=== PATIENT | female | born 1975 | race Native Hawaiian/Other Pacific Islander ===

== ENCOUNTER 2017-05-14 07:07 | Day surgery (SDC) | payer OTHER ==
[2017-05-11 09:52] VITALS: BMI 22.8
[2017-05-14] MEDS ORDERED: Midazolam 2 MG/2 ML VIAL ONE (08:36)
[2017-05-14] MEDS ORDERED: Propofol 10 mg/ml Inj (20 ML) ONE (08:36)
[2017-05-14] MEDS ORDERED: Succinylcholine Chloride 20 mg/ml Syr (5 ml) IV ONE (08:37)
[2017-05-14] MEDS ORDERED: Rocuronium 10 mg/ml (5 ml) ONE (08:37)
[2017-05-14] MEDS ORDERED: Bupivacaine HCl 0.25% PF (10 ml) Inj ONE (08:38)
[2017-05-14] MEDS ORDERED: Lactated Ringer's 1,000 ML IV ONE (08:53)
[2017-05-14] MEDS ORDERED: Phenylephrine 10 mg/ml Inj ONE (09:51)
[2017-05-14] MEDS ORDERED: ePHEDrine 50 mg/ml Inj ONE (09:51)
[2017-05-14] MEDS ORDERED: Neostigmine Methylsulfate 3mg/3ml Syringe IV ONE (10:09)
--- NOTE | 2017-05-14 10:10 | PCM.SURG1 ---
Surgeon's Initial Post Op Note - Surgeon's Notes Surgeon: Genoveva Carlson< Repack Room Worker: Jeronimo Zuniga MD Type of Anesthesia: General Endo Pre-Operative Diagnosis: Multiparity desiring permanent tubla sterilzation, removal of foreign body, IUD Operative Findings: anterverte duteurs 10-12 week size, IUD strings brought to cervical os with IUD hook removed intact, normla uterus, fallopian tubes and ovaries with 1cm hemorrhagic cyst on righ tovary. good hemostasis. no ocmplcaitons. Dr Jeronimo Zuniga was surgical garment inspector and present for entire case and essential in gaining entry, laparascopically, removing specimen, obtianing hemotasis, and closing all layers. Post-Operative Diagnosis: same as above Operation Performed: Laparascopic bilaeral salpingecotmy, Intrauterine device removal Specimen/Specimens Removed: IUD, right and left fallopian tubes Estimated Blood Loss: EBL {In ML}: 10 Blood Products Given: N/A Drains Used: No Drains Post-Op Condition: Good Date of Surgery/Procedure: 05/14/17 Time of Surgery/Procedure: 09:15
[2017-05-14] MEDS ORDERED: Naloxone 0.4 mg/ml Inj (Adult) IVP PRN (10:25)
[2017-05-14] MEDS ORDERED: HYDROmorphone 0.5 mg/0.5 ml ISec IVP PRN (10:25)
[2017-05-14 12:05] VITALS: RESP 18; O2SAT 100
[2017-05-14 16:03] VITALS: BP 108/63; PULSE 67; TEMP 98
--- NOTE | 2017-05-16 04:43 | OP ---
PROCEDURE DATE: 05/14/2017 PREOPERATIVE DIAGNOSES: Multiparous, desiring permanent tubal sterilization, removal of foreign body intrauterine device. POSTOPERATIVE DIAGNOSES: Multiparous, desiring permanent tubal sterilization, removal of foreign body intrauterine device. PROCEDURE: Laparoscopic bilateral salpingectomy and intrauterine device removal. SURGEON: Genoveva Carlson MD TRUCK DRIVER HELPER: Jeronimo Zuniga MD TYPE OF ANESTHESIA: General endotracheal. OPERATIVE FINDINGS: Anteverted uterus 10 weeks size, IUD strings brought to cervical os with IUD and this was removed intact. Normal uterus, fallopian tubes, and ovaries with 1 cm hemorrhagic cyst on right ovary. Good hemostasis. ESTIMATED BLOOD LOSS: 10 mL BLOOD PRODUCTS: None. COMPLICATIONS: No complications. Dr. Jeronimo Zuniga was the market research assistant present for the entire case, essentially gaining entry laparoscopically, inserting ports under direct visualization, holding the camera, removing the specimen, obtaining hemostasis, and closing all the layers. SPECIMEN REMOVED: Intrauterine device and right and left fallopian tubes. DESCRIPTION OF PROCEDURE: The patient was taken to the operating room where she was given general anesthesia after informed consent was obtained. After given general anesthesia and it was found to be adequate, she was placed on the operating table in the dorsal supine position with legs supported using stirrups. The patient was then prepped and draped in the usual sterile fashion. A bimanual exam was performed with above mentioned findings. A Munoz catheter was then inserted into the urethra to drain the bladder and bimanual exam was performed as mentioned. A weighted speculum was then placed in the vagina. Lynch retractor were placed in the anterior fornix of the vagina. The cervix was adequately visualized. A single tooth tenaculum was placed in the anterior lip of the cervix and there was no strings visualized at the os. An IUD hook was then used to help grasp the strings with a ring forceps. Both strings were grasped and IUD was removed intact. There was good hemostasis noted. Following this, the uterus was then sounded and the cervix was sequentially dilated to allow for introduction of the HUMI manipulator, which was insufflated with air into the uterus to help allow for manipulation of the uterus. A single-tooth tenaculum was removed and there was good hemostat at the tenaculum puncture site. Both speculums were removed. Following this, attention was then turned to the abdomen and all surgeons removed the dirty gloves in the previous portion of the case and then regloved. A 1 cm skin incision was made immediately inferior to the umbilicus after being tented up with two towel clamp. The superior aspect of the umbilicus was grasped with towel clamp and a Veress needle was inserted through this incision. Next, a cylinder was used to inject normal saline into the Veress needle. The normal saline was seemed to drop freely so Veress needle was connected to the CO2 gas, which was started at flow setting. The gas was seen to flow freely with normal resistance. So the CO2 gas was advanced at higher setting. The abdomen was insufflated to an adequate distension of 15 mmHg. Once an adequate distension was reached, the CO2 gas was disconnected. The Veress needle was removed and a 5 mm depth trocar with laparoscopic camera was inserted with the introducer under direct visualization. Upon placement in the cavity, introducer was removed and the trocar was connected to the CO2 gas and the camera was then reinserted. Following this, a 1 cm skin incision was made both in the right and left lower quadrant after administering 0.5 mL of Marcaine under direct visualization and trocar was inserted under direct visualization. The 5 mm ports were approximately located in each lower quadrant respectively. Following this, the patient was then placed in Trendelenburg position and the uterus was then manipulated using HUMI manipulator and blunt probe was used to remove the overlying bowel away from the cul-de-sac and out of the operative views. Following this, there was a normal uterus with bilateral tubes and ovaries noted and which both tubes appeared slightly dilated. The laparoscopic Forrest was then used to grasp the left fallopian tube, which was elevated and the 5 mm LigaSure device was then inserted cauterizing and cutting collectively from the distal end of the fimbriated end along the mesosalpinx up to the cornea of the tube. There was good hemostasis noted and the fallopian tube specimen was then removed through the laparoscopic port. Similar fashion was performed with the right side in which we grabbed the laparoscopic Forrest clamp and cauterized in a hemostatic manner along the mesosalpinx to the cornua and was removed through the laparoscopic port. There was good hemostasis noted. Both ovaries appeared normal with hemorrhagic cyst on the right ovary. The abdomen was then suctioned and irrigated and there was good hemostasis noted. The laparoscopic ports were then all removed under direct visualization and there was good hemostasis noted. The camera was then removed. The CO2 gas was disconnected and the abdomen was desufflated. All laparoscopic incisions were reapproximated and closed with 3-0 Monocryl in a running subcuticular fashion. They were Steri-Strips and appropriate bandage dressing to the abdomen. The HUMI uterine manipulator was then removed in addition to the Munoz catheter. At the end of the procedure, all needle, sponge, and instrument counts were noted to be correct x2. The patient tolerated the procedure well and was transferred to the recovery room in stable condition. Genoveva Carlson MD
== END 2017-05-14 13:25 | disposition home or self-care (01) ==
LOC: C.SDS 07:07
PROVIDERS: ATTEND Obstetrics & Gynecology
DX: Z30.2 Encounter for sterilization (principal); N83.201 Unspecified ovarian cyst, right side; Z30.432 Encounter for removal of intrauterine contraceptive device
CPT/HCPCS: 58301; 58661; 88302; J1100; J1885; J2001; J2250; J2370; J2405; J2704; J2710; J3010; J7120